=== PATIENT | female | born 1955 | race Caucasian/White ===

== ENCOUNTER 2017-03-10 10:54 | Emergency (ER) | payer OTHER ==
--- NOTE | 2017-03-10 11:42 | UC ---
Throat Pain/Nasal Mo HPI - HPI Summary HPI Summary: 61 YEAR OLD FEMALE PRESENTS WITH COMPLAINS OF NASAL CONGESTION AND COUGH. - History of Current Complaint Stated Complaint: SINUS Time Seen by Provider: 03/10/17 11:34 Hx Last Menstrual Period: 1978 - Allergies/Home Medications Allergies/Adverse Reactions: Allergies Allergy/AdvReac Type Severity Reaction Status Date / Time Pregabalin [From Lyrica] AdvReac Intermediate Swelling Verified 03/10/17 11:37 ? Biaxin Allergy Nausea Uncoded 03/10/17 11:37 PMH/Surg Hx/FS Hx/Imm Hx - Surgical History Surgical History: Yes Surgery Procedure, Year, and Place: [email or web address] 06/20/10 - [facility]; Hysterectomy 1985 - [facility]; Tonsillectomy 1958 - [place]; Cholecystectomy and dental surgery 05/2011, neck. L TKA - Family History Known Family History: Positive: Renal Disease - father of renal failure - Social History Alcohol Use: None Substance Use Type: Prescribed Smoking Status (MU): Never Smoked Tobacco - Immunization History Most Recent Influenza Vaccination: 2015 Review of Systems Constitutional: Negative Skin: Negative Eyes: Negative ENT: Sore Throat, Nasal Discharge, Sinus Congestion Respiratory: Negative Cardiovascular: Negative Gastrointestinal: Negative Genitourinary: Negative Motor: Negative Neurovascular: Negative Musculoskeletal: Negative Neurological: Negative Psychological: Negative All Other Systems Reviewed And Are Negative: Yes Physical Exam Triage Information Reviewed: Yes Eye Exam: Normal ENT: Positive: Pharyngeal erythema, Nasal congestion, Nasal drainage Dental Exam: Normal Neck exam: Normal Neck: Positive: 1 Respiratory Exam: Normal Cardiovascular Exam: Normal Abdominal Exam: Normal Musculoskeletal Exam: Normal Neurological Exam: Normal Psychological Exam: Normal Skin Exam: Normal Throat Pain/Nasal Course/Dx - Differential Dx/Diagnosis Provider Diagnoses: SINUSITIS. BRONCHITIS Discharge - Discharge Plan Condition: Stable Disposition: HOME Prescriptions: Albuterol HFA INHALER* [Ventolin HFA Inhaler*] 1 puff INH Q4H PRN #1 mdi PRN Reason: Wheezing Azithromycin TAB* [Zithromax TAB (Z-NELY) 250 mg #6 tabs] 2 tab PO .TODAY, THEN 1 DAILY #1 nely Methylprednisolone [Medrol Dosepak 4 MG*] 4 mg PO .SEE NELY INSTRUCTION #21 tab guaiFENesin/CODIEN 100MG-10MG* [Robitussin AC 100Mg-10Mg*] 5 ml PO Q4H PRN #120 ml MDD 20 ML PRN Reason: Cough guaiFENesin/CODIEN 100MG-10MG* [Robitussin AC 100Mg-10Mg*] 5 ml PO Q4H PRN #120 ml MDD 20 ml PRN Reason: Cough Patient Education Materials: Sinusitis (ED) Referrals: Chace Goel MD [Primary Care Provider] - If Needed
[2017-03-10 11:43] VITALS: BP 129/61
== END 2017-03-10 12:10 | disposition home or self-care (01) ==
LOC: UCCORT 10:54
DX: J32.9 Chronic sinusitis, unspecified (principal); J40 Bronchitis, not specified as acute or chronic; Z90.710 Acquired absence of both cervix and uterus; Z90.49 Acquired absence of other specified parts of digestive tract
CPT/HCPCS: 99212; G0463

== ENCOUNTER 2017-10-26 11:26 | Emergency (ER) | payer OTHER | END 2017-10-26 15:56 | disposition left against medical advice (07) | LOC: UCCORT 11:26 | DX: R05 Cough (principal); R09.81 Nasal congestion; R51 Headache; Z53.21 Procedure and treatment not carried out due to patient leaving prior to being seen by health care provider ==

== ENCOUNTER 2018-05-18 14:49 | Day surgery (SDC) | payer OTHER ==
[2018-05-18] MEDS ORDERED: cefTRIAXone(*) 2 GM ADDV.VIAL IVPB ONE (15:31)
[2018-05-18] MEDS ORDERED: PROCHLORPERAZINE INJ 5 MG/ML 2 ML VIAL IV PRN (15:32)
[2018-05-18] MEDS ORDERED: Buffered Lidocaine 0.9% SYRIN* 5 ML/SYR SYRINGE INTRADERM ONE (15:32)
[2018-05-18] MEDS ORDERED: HYDROcodone/ACETAMIN 5-325 MG* 1 TAB PO PRN (15:32)
[2018-05-18] MEDS ORDERED: Naloxone* 0.4 MG/ML 1 ML VIAL IV PRN ×2 (15:32→18:14)
[2018-05-18] MEDS ORDERED: DiMENhydriNATE IV* 50 MG/ML VIAL IV PUSH PRN ×2 (15:32→18:14)
[2018-05-18] MEDS ORDERED: Ondansetron INJ* 2 MG/ML VIAL IV PRN (15:32)
[2018-05-18] MEDS ORDERED: Acetaminophen TAB* 325 MG PO PRN (15:32)
[2018-05-18] MEDS ORDERED: fentaNYL* 50 MCG/ML 2 ML VIAL (100 MCG VIAL) IV PRN ×2 (15:32→18:14)
--- NOTE | 2018-05-18 15:40 | HP ---
CC: Dr. Goel * DATE OF PLANNED ADMISSION AND SURGERY: 05/18/2018. HISTORY OF PRESENT ILLNESS: Ms. Evans is a 62-year-old white female who is admitted with an episode of left renal colic and an 8 mm calculus at the left ureteropelvic junction for cystoscopy and placement of a left ureteral stent. Ms. Evans started having on and off episodes of painless gross hematuria about three months ago. There was some associated abdominal pain. She had a noncontrast CT of the abdomen and pelvis at [facility] about three months ago and the study at that time showed a 7 mm calculus in the mid pole calyx of her left kidney. No other abnormalities were noted. The patient present to my office two weeks ago for evaluation. At that time, the stone was asymptomatic and she was worked up for the gross hematuria with a CT urogram. The study showed a 7 mm calculus in the left renal pelvis without associated hydronephrosis. The plan was to proceed with a cystoscopy to rule out bladder lesions, and then plan for the definitive treatment for the stone. Two days ago, she started having episodes of on and off left renal colics, some were associated with nausea but no vomiting. She also had a low grade fever, but no chills. The patient had a work-up with a renal ultrasound which showed a 7 to 8 mm calculus at the left ureteropelvic junction with mild hydronephrosis and increased cortical echogenicity. KUB did not show the stone possibly due to overlying gas shadow and dilated bowel loops. Because of the above findings and the recurrent episodes of colic, the above procedure was advised and accepted. Past history is relevant for gross hematuria and left renal colic eight years ago. At that time, she was worked up by Nephrology in [place], had a renal biopsy and was told by Dr. Jaeger, her hygiene teacher, that she had a renal function that was not serious. She was placed on a diet only for her stone disease. PAST MEDICAL HISTORY AND SYSTEM REVIEW: She is hypertensive, maintained on HCTZ and Amlodipine. She has chronic back pain and take Gabapentin. She denies any cardiac or pulmonary diseases or symptoms. PAST SURGICAL HISTORY: She had laparoscopic fundoplication at [facility] about tens years ago for hiatal hernia. ALLERGIES: She denies any allergies to medications. SOCIAL HISTORY: She is a nonsmoker. PHYSICAL EXAMINATION GENERAL: She is a moderately overweight, white female who is in a moderate amount of pain. VITAL SIGNS: Blood pressure 120/80, pulse 96, temperature 99.6. LUNGS: Clear. HEART: Regular and rhythmic, no murmurs. ABDOMEN: Soft. There is moderate left CVA tenderness. IMPRESSION: Intermittent episodes of left renal colic secondary to a 7 to 8 mm calculus at the left ureteropelvic junction. The calculus is most likely the cause of the recurrent episodes of gross hematuria. PLAN: Cystoscopy and placement of a left ureteral stent in preparation for definitive treatment of the stone. [id number]/CPS #: [id number] MTDD
[2018-05-18] MEDS ORDERED: Iohexol 180 (CONTRAST) 10 ML SDV IV ONE (16:35)
[2018-05-18] MEDS ORDERED: Midazolam* 1 MG/ML 2 ML VIAL (2 MG) ONE (17:27)
[2018-05-18] MEDS ORDERED: fentaNYL* 50 MCG/ML 2 ML VIAL (100 MCG VIAL) ONE (17:27)
[2018-05-18 19:52] VITALS: BP 136/74
--- NOTE | 2018-05-19 01:08 | OP ---
CC: Dr. Goel * DATE OF OPERATION: 05/18/18 - [facility] DATE OF : 51 SURGEON: Lauro Olivia MD ANESTHESIOLOGIST: Dr. Geoff Henry. ANESTHESIA: General. PRE-OP DIAGNOSES: 1. Left renal colic. 2. Left ureteropelvic junction calculus (8 mm). POST-OP DIAGNOSES: 1. Left renal colic. 2. Left ureteropelvic junction calculus (8 mm). OPERATIVE PROCEDURE: 1. Cystoscopy. 2. Left retrograde pyelography. 3. Placement of left ureteral stent (6-Turkish). INDICATIONS FOR PROCEDURE: Ms. Evans is a 62-year-old white female who is known to have a 7 to 8 mm left renal calculus. She had on and off episodes of painless gross hematuria. The patient was worked up with CT urogram, which showed a 7 mm nonobstructing calculus in the left renal pelvis, but no other abnormalities. The patient presented today to the office with 2 days history of recurrent episodes of left renal colic. She also had low-grade fever. Office ultrasound showed an 8 mm calculus at the left ureteropelvic junction with mild left hydronephrosis. Urinalysis showed +3 blood, was negative otherwise. Because of the above history and finding, the patient was taken to the operating room for left ureteral stent placement in preparation for definitive treatment of the stone. PATHOLOGY: At cystoscopy, the bladder mucosa looked normal. There were no suspicious of bladder lesion seen. There were no changes of cystitis. The ureteral orifices looked normal. There was 1 orthotopic orifice on each side. At fluoroscopy, no calcifications consistent with a calculus were noted in the area of the left renal pelvis. Upon placement of the left ureteral catheter in the left renal pelvis, there was a gush of concentrated-looking urine. The urine did not look cloudy. Left retrograde pyelography after draining the left renal pelvis showed no hydronephrosis. DESCRIPTION OF PROCEDURE: After successful general anesthesia, the patient was placed in the lithotomy position and was prepped and draped for cystoscopy. Cystoscopy was performed. The bladder was carefully inspected and the above findings were noted. A flexible tip guidewire was then introduced into the left ureteral orifice and passed without difficulty into the area of the renal pelvis. A size 5-Turkish open- ended catheter was then fed on top of the guidewire and positioned in the renal pelvis. Hydronephrotic drip was noted. After the drip slowed down, a total of 3 to 4 cc of non-diluted contrast were injected delineating the collecting system. A size 6-Turkish stent was then placed with the proximal end coiling in renal pelvis and the distal end coiling inside the bladder. There was good drainage of contrast from the kidney and no extravasation. The patient tolerated the procedure well and left the operating room in good condition. The plan is to observe the patient in the PACU for about 2 hours to check for possible fever. The patient will be re-evaluated with a KUB. Decision will be made regarding the definitive treatment of the stone. [id number]/CPS #: [id number] MTDAakash
--- NOTE | 2018-05-19 07:32 | RAD ---
INDICATION: Left ureteral stent placement. COMPARISON: Correlation is made with a prior CT urogram from May 08, 2018. TECHNIQUE: 9 seconds of intermittent fluoroscopic guidance were provided and 3 spot films of the abdomen were centered on the left side. FINDINGS: There is partial opacification of the left renal collecting system. Subsequently there is placement of a double-J stent catheter on the left side which demonstrates normal course. IMPRESSION: INTRAOPERATIVE CONTROL FILMS. CPT II Codes: G9500
== END 2018-05-18 20:10 | disposition home or self-care (01) ==
LOC: OR 14:49
PROVIDERS: ATTEND Urology
DX: N20.1 Calculus of ureter (principal); R31.0 Gross hematuria; I10 Essential (primary) hypertension; R10.9 Unspecified abdominal pain; K21.9 Gastro-esophageal reflux disease without esophagitis
CPT/HCPCS: 74420; C1876; J0696; J2250; J3010

== ENCOUNTER 2018-05-29 10:45 | Day surgery (SDC) | payer OTHER ==
--- NOTE | 2018-05-27 00:17 | HP ---
CC: Dr. Goel* HISTORY AND PHYSICAL: DATE OF PLANNED ADMISSION AND SURGERY: 05/29/18 HISTORY OF PRESENT ILLNESS: Mrs. Evans is a 62-year-old white female, who is admitted with a proximal left ureteral calculus, status post placement left ureteral stent, for cystoscopy, left ureteroscopy, laser lithotripsy, and left ureteral stent exchange. Mrs. Evans's history goes back to about 3 months ago when she started having recurrent episodes of gross painless hematuria. They were associated with mild left flank pain. She had a CT urogram, which showed a 7-mm calculus in the left renal pelvis. The patient then presented with an episode of left renal colic. She was taken to the operating room on an urgent basis. Cystoscopy showed no bladder lesions, and she had placement of left ureteral stent. Postoperative KUB failed to show the calculus, showing the left ureteral stent in good position. She then had a renal ultrasound, which showed an 8-mm calculus at the left ureteropelvic junction. The patient has been having irritative symptoms from the stent and she was placed on VESIcare. She was also placed on Cipro pending a urine culture. Considering that the left renal calculus is not visualized on the KUB, she is not a candidate for shockwave lithotripsy. The patient is admitted for left ureteroscopy, laser lithotripsy, and left ureteral stent exchange. PAST MEDICAL HISTORY AND SYSTEM REVIEW: She is hypertensive, maintained on HCTZ and amlodipine. She has chronic back pain, for which she takes gabapentin. She denies any cardiac or pulmonary diseases or symptoms. She denies any allergies to medications. The patient had a laparoscopic fundoplication at [facility] about 3 years ago. She is a nonsmoker. PHYSICAL EXAMINATION GENERAL: She is a moderately overweight female, who is in moderate discomfort because of the stent. VITAL SIGNS: Blood pressure 150/80, pulse of 80, temperature 97.5. LUNGS: Clear. HEART: Regular and rhythmic. No murmurs. ABDOMEN: She has mild left CVA tenderness. IMPRESSION: Proximal radiolucent calculus at the left ureteropelvic junction, status post placement left ureteral stent. PLAN: Plan is for cystoscopy, left ureteroscopy, laser lithotripsy, and left ureteral stent exchange. I discussed the above plans in detail with the patient and her and all their questions were answered. [id number]/[facility] #: [id number] EDMUNDO
[~2018-05-29 10:45] MED LIST: Buffered Lidocaine 0.9% SYRIN* 5 ML/SYR SYRINGE INTRADERM ONE; Famotidine IV* 10 MG/ML 2 ML (20 mg) IV ONE
[2018-05-29] MEDS ORDERED: cefTRIAXone(*) 2 GM ADDV.VIAL IVPB ONE (11:00)
[2018-05-29] MEDS ORDERED: Famotidine IV* 10 MG/ML 2 ML (20 mg) ONE (11:02)
[2018-05-29] MEDS ORDERED: Iohexol 180 (CONTRAST) 10 ML SDV IV ONE (11:12)
[2018-05-29] MEDS ORDERED: fentaNYL* 50 MCG/ML 2 ML VIAL (100 MCG VIAL) ONE ×3 (11:13→14:36)
[2018-05-29] MEDS ORDERED: Midazolam* 1 MG/ML 5 ML VIAL (5 MG) ONE (11:13)
[2018-05-29] MEDS ORDERED: Propofol* 10 MG/ML 20 ML BTL IV PUSH ONE (11:13)
[2018-05-29] MEDS ORDERED: Dexamethasone IV* 4 MG/ML 1 ML (4 MG) ONE (11:13)
[2018-05-29] MEDS ORDERED: Lidocaine 2% PF * 5 ML VIAL ONE (11:13)
[2018-05-29] MEDS ORDERED: Ondansetron INJ* 2 MG/ML VIAL ONE ×2 (11:13→14:08)
[2018-05-29] MEDS ORDERED: EPHEDrine (Pressors)* 50 MG/ML VIAL ONE (12:42)
[2018-05-29] MEDS ORDERED: Naloxone* 0.4 MG/ML 1 ML VIAL IV PRN (12:58)
[2018-05-29] MEDS ORDERED: Ondansetron INJ* 2 MG/ML VIAL IV PRN (12:58)
[2018-05-29] MEDS ORDERED: oxyCODONE/Acetamin 5/325 MG* TAB ONE (14:07)
[2018-05-29] MEDS: fentaNYL* 50 MCG/ML 2 ML VIAL (100 MCG VIAL) IV PRN ×3 (14:19→14:39)
--- NOTE | 2018-05-29 14:27 | RAD ---
INDICATION: LEFT Laser lithotripsy and stent exchange. Technique: 9 seconds of?fluoroscopy?was provided?for the physician proceduralist. REPORT: Spot images document LEFT retrograde pyelogram with mild caliectasis. LEFT ureteral stent placed. IMPRESSION: Procedural control films. CPT II Codes: G9500
[2018-05-29 15:06] VITALS: BP 114/64
--- NOTE | 2018-05-30 06:24 | OP ---
CC: Dr. Goel OPERATIVE REPORT: DATE OF OPERATION: 05/29/18 DATE OF : 51 SURGEON: Lauro Olivia MD ANESTHESIOLOGIST: Alejandro Schultz MD ANESTHESIA: General. PRE-OP DIAGNOSES: 1. Left renal calculus. 2. Status post placement, left ureteral stent. POST-OP DIAGNOSES: 1. Left renal calculus. 2. Status post placement, left ureteral stent. OPERATIVE PROCEDURE: 1. Cystoscopy. 2. Left ureteroscopy and pyeloscopy. 3. Laser lithotripsy of left renal calculus. 4. Left retrograde pyelography and placement of left ureteral stent (7 Irish). INDICATIONS FOR PROCEDURE: Mrs. Evans is a 62-year-old white female who was worked up for gross hematuria and left flank pain and was noted to have an 8 to 10 mm calculus at the left ureteropelvic junction. She had placement of left ureteral stent about 10 days ago. On followup KUB, the calculus could not be visualized and the patient was not a candidate for shockwave lithotripsy. The patient is admitted for ureteroscopy and anastasia lithotripsy. PATHOLOGY AT CYSTOSCOPY: The distal limb of the stent was noted from the left ureteral orifice. There was the expected edema of the bladder mucosa secondary to the stent. Upon left ureteroscopy, the ureter was dilated from the presence of the stent. A 1 cm calculus was noted in the renal pelvis. The calculus had gross appearance of a calcium oxalate stone. DESCRIPTION OF PROCEDURE: After successful general anesthesia, the patient was placed under lithotomy position and was prepped and draped for a cystoscopy. Cystoscopy was performed. The bladder was inspected. The distal limb of the stent was then pulled out to the level to the urethral meatus. A flexible-tip guide wire was introduced to the lumen of the stent and positioned in the renal pelvis and the stent was removed keeping the guidewire in place. A 6.5 semirigid tapered ureteroscope was then introduced inside the bladder. A flexible-tip basket was introduced through the port of the ureteroscope and the flexible tip was introduced into the left ureter alongside the guidewire. That allowed the atraumatic introduction of the ureteroscope into the ureter. The ureteroscopy was atraumatic considering the passively dilated ureter from the presence of the stent.. The ureteroscope was then passed all the way into the renal pelvis. The calculus was identified. Using the spiral basket, the stone was engaged and stabilized in the renal pelvis. A size 550 micron laser fiber was then introduced through the other port of the ureteroscope and the stone was broken into multiple fragments using the laser energy. The fragments were then extracted and sent for stone analysis. After removal of all the significant stone fragments, the cystoscope was introduced over the guidewire. Retrograde pyelography was performed showing no evidence of extravasation. A size 6-Irish stent was then placed with the proximal end coiling in the renal pelvis and the distal end coiling inside the bladder. There was good drainage of contrast from the kidney and no extravasation. The patient tolerated the procedure well and left the operating room in good condition. The plan is to leave the stent in place for about 10 days. It will be removed in the office under local anesthesia. [id number]/CPS #: [id number] MTDD
== END 2018-05-29 15:30 | disposition home or self-care (01) ==
LOC: OR 10:45
PROVIDERS: ATTEND Urology
DX: N20.0 Calculus of kidney (principal); N18.9 Chronic kidney disease, unspecified; K21.9 Gastro-esophageal reflux disease without esophagitis; I12.9 Hypertensive chronic kidney disease with stage 1 through stage 4 chronic kidney disease, or unspecified chronic kidney disease
CPT/HCPCS: 74420; 82365; 88300; A9270-GY; C1876; J0696; J1100; J2250; J2405; J2704; J3010

== ENCOUNTER 2019-02-22 05:50 | Day surgery (SDC) | payer MEDICARE, OTHER ==
--- NOTE | 2019-01-28 17:54 | HP ---
PREOPERATIVE HISTORY AND PHYSICAL: DATE OF ADMISSION/SURGERY: 02/22/19 DATE OF OFFICE VISIT: 01/28/19 ATTENDING SURGEON: Dr. Yossi Page.* (DICTATED BY CHALINO MARTÍNEZ) PROCEDURE: Left ankle calcaneal shaving, Achilles advancement. CHIEF COMPLAINT: Left ankle pain. HISTORY OF PRESENT ILLNESS: Cassidy is a 63-year-old female, who presented to the clinic with left insertional tendinitis. She has failed conservative measures to include a boot and continues to have symptoms; therefore, she agreed to undergo a left ankle calcaneal shaving, Achilles advancement with Dr. Page on 02/22/19. 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 PAST SURGICAL HISTORY: Hysterectomy, tonsillectomy and adenoidectomy, hernia repair, cholecystectomy, neck surgery, and left total knee arthroplasty. The patient denies prior complications with anesthesia. MEDICATIONS: 1. Zolpidem tartrate 10 mg 1 by mouth at night. 2. Ondansetron 8 mg 1 by mouth 3 times a day. 3. Amlodipine 5 mg 1 by mouth daily. 4. Gabapentin 100 mg 1 by mouth at night. 5. Potassium chloride 2 tabs daily. 6. Hydrochlorothiazide 12.5 mg 1 daily. 7. Oxycodone 10 mg 1 every 12 hours. 8. Oxycodone 5 mg 1 to 2 four times a day as needed. She is currently taking 2 to 3 pills a day. 9. Allopurinol 300 mg 1 by mouth every day. ALLERGIES: No known drug allergies. FAMILY HISTORY: Positive for kidney disease in her dad. She denies family history of DVT or PE. SOCIAL HISTORY: She lives with her . 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 She denies tobacco use. She denies alcohol consumption. She exercises regularly. She is right-hand dominant. REVIEW OF SYSTEMS: A 14-point review of systems was reviewed today with the patient. Positive for current complaint, otherwise negative. Denies fever, chills, chest pain, shortness of breath, history of bleeding disorder, history of DVT or PE. PHYSICAL EXAMINATION GENERAL: A 63-year-old well-developed, well-nourished female, in no acute distress. VITAL SIGNS: Height 65.5, weight 187, pulse 80, blood pressure 140/98, respiratory rate 18, temperature 98.1, BMI 30.6. HEENT: Normocephalic, atraumatic. PERRLA. Throat clear. NECK: Supple. PULMONARY: Lungs clear to auscultation bilaterally. No wheezing, rhonchi, or rales. CARDIO: Regular rate and rhythm. S1, S2. No murmurs, gallops, or rubs. No edema. ABDOMEN: Positive bowel sounds. Soft, nontender. NEURO: Alert and oriented x3. Cranial nerves grossly intact. MUSCULOSKELETAL: Left lower extremity: Skin is intact. Tenderness over the insertion of the Achilles with surrounding edema. She has neutral alignment of the hindfoot, +5/5 strength to plantarflexion with some discomfort, full range of motion of the ankle, +2 DP pulse. Calf soft, nontender. Sensation intact to light touch distally. IMPRESSION: Left ankle insertional Achilles tendinosis. PLAN: The patient is scheduled to undergo a left ankle calcaneal shaving, Achilles advancement with Dr. Page on 02/22/19. She is on chronic pain medications, so this will be discussed with Dr. Goel, but most likely she will be on oxycodone in addition to her chronic pain meds for postop pain management. She will follow up 10 to 14 days postop for followup and possible suture removal. CHALINO MARTÍNEZ [id number]/[facility] #: [id number] EDMUNDO
[~2019-02-22 05:50] MED LIST changes: -Buffered Lidocaine 0.9% SYRIN* 5 ML/SYR SYRINGE INTRADERM ONE; +Buffered Lidocaine 1% SYRIN* 1 ML/SYRINGE INTRADERM ONE; -Famotidine IV* 10 MG/ML 2 ML (20 mg) IV ONE
[2019-02-22] MEDS ORDERED: Lactated Ringers 1000 ML Bag* 1,000 ML IV SCH (06:00)
[2019-02-22] MEDS ORDERED: Famotidine IV* 10 MG/ML 2 ML (20 mg) IV ONE (06:00)
[2019-02-22] MEDS ORDERED: Dexamethasone IV* 4 MG/ML 1 ML (4 MG) IV SLOW PU ONE (06:00)
[2019-02-22] MEDS ORDERED: Dexamethasone IV* 4 MG/ML 1 ML (4 MG) ONE (06:18)
[2019-02-22] MEDS ORDERED: Metoclopramide IV* 5 MG/ML 2 ML VIAL ONE (06:18)
[2019-02-22] MEDS ORDERED: Buffered Lidocaine 1% SYRIN* 1 ML/SYRINGE INTRADERM ONE (06:19)
[2019-02-22] MEDS ORDERED: ceFAZolin 2 GM in NS PREMIX(*) 2 GM/100 ML BAG IVPB ONE (06:19)
[2019-02-22] MEDS ORDERED: Famotidine IV* 10 MG/ML 2 ML (20 mg) ONE (06:19)
[2019-02-22] MEDS ORDERED: Metoclopramide IV* 5 MG/ML 2 ML VIAL IV ONE (06:30)
[2019-02-22] MEDS ORDERED: Bupivacaine 0.5%* 50 ML VIAL ONE (06:52)
[2019-02-22] MEDS ORDERED: Lidocaine 2% PF* 10 ML AMP ONE (06:52)
[2019-02-22] MEDS ORDERED: fentaNYL* 50 MCG/ML 2 ML VIAL (100 MCG VIAL) ONE ×3 (07:06→09:56)
[2019-02-22] MEDS ORDERED: Midazolam* 1 MG/ML 5 ML VIAL (5 MG) ONE (07:06)
[2019-02-22] MEDS ORDERED: DiMENhydriNATE IV* 50 MG/ML VIAL IV PUSH PRN (07:18)
[2019-02-22] MEDS ORDERED: Naloxone* 0.4 MG/ML 1 ML VIAL IV PRN (07:18)
[2019-02-22] MEDS ORDERED: HYDROcodone/ACETAMIN 5-325 MG* 1 TAB PO PRN (07:18)
[2019-02-22] MEDS ORDERED: Lidocaine 2% PF * 5 ML VIAL ONE ×2 (07:20→07:21)
[2019-02-22] MEDS ORDERED: Succinylcholine* 20 MG/ML 10 ML VIAL ONE (07:20)
[2019-02-22] MEDS ORDERED: Propofol* 10 MG/ML 20 ML BTL ONE (07:20)
[2019-02-22] MEDS ORDERED: KETAMINE HCL* 50 MG/ML 10 ML VIAL ONE (07:35)
[2019-02-22] MEDS ORDERED: Phenylephrine 40 MCG/ML SYRINGE ONE (07:53)
[2019-02-22] MEDS ORDERED: Ondansetron INJ* 2 MG/ML VIAL ONE (08:17)
[2019-02-22] MEDS ORDERED: oxyCODONE/Acetamin 5/325 MG* TAB ONE ×2 (09:09→09:32)
[2019-02-22] MEDS: oxyCODONE/Acetamin 5/325 MG* TAB PO PRN ×2 (09:11→09:33)
[2019-02-22] MEDS: fentaNYL* 50 MCG/ML 2 ML VIAL (100 MCG VIAL) IV PRN ×4 (09:12→10:10)
[2019-02-22 11:24] VITALS: BP 135/73
--- NOTE | 2019-02-22 13:44 | OP ---
DATE OF OPERATION: 02/22/19 - [facility] DATE OF : 51 SURGEON: Yossi Page MD. CONTAINER FINISHER: Sonja Curiel PA-C. PRE-OP DIAGNOSES: Insertional tendinosis, left Achilles tendon and posterior calcaneal bone spur. POST-OP DIAGNOSES: Insertional tendinosis, left Achilles tendon and posterior calcaneal bone spur. OPERATIVE PROCEDURE: Left tendon Achilles advancement and calcaneal ostectomy. DESCRIPTION OF PROCEDURE: The patient was taken to the operating room, where a longitudinal incision was made over the distal Achilles, more to the medial than lateral side of the midline. We incised down around the insertion of the Achilles at the posterior heel and then elevated the Achilles off the posterior calcaneus. We resected the posterior calcaneal bursa with the small fragment oscillating saw. Proximally, the tendon needed to be advanced, so we performed a V-Y release over the posterior Achilles fascia. The cut was about 6 cm V- shaped. This allowed an extra 2 cm of advancement. The Achilles was then reattached to the posterior calcaneus using the [employer] from [employer]. This gave a good firm attachment back to the posterior calcaneus itself. We irrigated the wound, closing with Vicryl and kvng. Tourniquet time was approximately 30 minutes. [id number]/[facility] #: [id number] MTDD
== END 2019-02-22 11:30 | disposition home or self-care (01) ==
LOC: OR 05:50
PROVIDERS: ATTEND Orthopaedic Surgery
DX: M76.62 Achilles tendinitis, left leg (principal); M77.32 Calcaneal spur, left foot; M54.9 Dorsalgia, unspecified; G89.29 Other chronic pain; E78.5 Hyperlipidemia, unspecified; I10 Essential (primary) hypertension; K21.9 Gastro-esophageal reflux disease without esophagitis; Z87.442 Personal history of urinary calculi
CPT/HCPCS: A9270-GY; C1713; J0330; J0690; J1100; J2001; J2250; J2405; J2704; J2765; J3010; J3490